=== PATIENT | male | born 1980 | race Caucasian/White ===

== ENCOUNTER → 2017-12-30 | Outpatient (CLI) | payer BC ==
--- NOTE | 2017-12-30 17:02 | PCVCIMAG ---
APPROVED REPORT Study performed: 12/30/2017 14:48:22 Exam: Stress Echocardiogram Indication: Hyperlipidemia, CVA, Tobacco Patient Location: Echo lab Stress Nurse: Doris Aguilar RN Status: routine Ht: 5 ft 11 in HR: 84 bpm Rhythm: NSR Medical History Medical History: Hyperlipidemia, Smoking Procedure The patient underwent an Exercise Stress Test using the Mark Protocol. Blood pressure, heart rate, and EKG were monitored. An Echocardiogram was performed by cardiac catheterization technician in four stages in quad fashion. At peak stress, four selected images were obtained and placed side by side with resting images for comparison. Stress Test Details Stress Test: Exercise stress testing was performed using a Mark protocol. HR Resting HR: 84 bpmMax Heart Rate (APMHR): 184 bpm Max HR Achieved: 169 bpmTarget HR (85% APMHR): 156 bpm % of APMHR: 91 HR response to stress: Normal HR response to stress BP Resting BP: 130/80 mmHg Max BP: 180/80 mmHg ECG Resting ECG: Sinus Rhythm, PVC's Stress ECG: Sinus Rhythm Arrhythmia: APC's Recovery ECG: Sinus Rhythm, PVC's Recovery Arrhythmia: VPC Clinical Reason for Termination: Maximal effort Exercise duration: 9 min sec Highest Stage Achieved: Stage 3: 3.4 mph at 14% grade. Exercise capacity: 10.40 METs Overall Exercise Capacity for Age: Poor Pre-Stress Echo The resting Echocardiogram showed normal left ventricular contractility with an estimated Ejection Fraction of about 55-60%. Normal wall motion in all segments on baseline images. Post-Stress Echo The stress Echocardiogram showed normal left ventricular contractility with an estimated Ejection Fraction of about 60-65%. Normal augmentation of wall motion in all segments on post stress images. Clinical No clinical or ECG evidence for ischemia. Conclusion Clinical Response: Non-ischemic Exercise Capacity: Below Average Stress ECG Response: Non-ischemic Stress Echo Images: Non-ischemic The left ventricle is normal in size and wall thickness in both the rest and stress images. Other Information Study Quality: Adequate <Conclusion> The left ventricle is normal in size and wall thickness in both the rest and stress images.
== END | disposition home or self-care (01) ==
LOC: PCVCIMAG 13:00
PROVIDERS: ATTEND Internal Medicine Cardiovascular Disease
DX: R07.9 Chest pain, unspecified (principal)
CPT/HCPCS: 93325; 93351